=== PATIENT | female | born 1970 | race Caucasian/White ===

== ENCOUNTER 2019-04-06 15:15 | Emergency (ER) | payer BC, OTHER ==
--- NOTE | 2019-04-06 17:29 | CT ---
EXAMINATION TYPE: CT brain cayden evans DATE OF EXAM: 04/06/2019 COMPARISON: None HISTORY: Pain, head injury post fall CT DLP: 1384.8 mGycm Automated exposure control for dose reduction was used. TECHNIQUE: CT scan of the head and cervical spine are performed without contrast. FINDINGS: There is no acute intracranial hemorrhage, mass effect, or midline shift identified. The ventricles and sulci are within normal limits in size. The globes are intact and the visualized sin uses are clear. Cervical spine is visualized in its entirety from C1 through upper thoracic levels and demonstrates s atisfactory alignment without evidence of acute fracture or dislocation. Prevertebral soft tissue ap pears within normal limits. The C1-C2 articulation is unremarkable. IMPRESSION: 1. There is no acute fracture or dislocation evident in the cervical spine. 2. No acute intracranial hemorrhage, mass effect, or midline shift is seen.
--- NOTE | 2019-04-06 18:32 | XR ---
PROCEDURE: XR ankle complete LT - 3V DATE AND TIME: 04/06/2019 5:44 PM CLINICAL INDICATION: PHH; Pain TECHNIQUE: Department protocol COMPARISON: None FINDINGS: There is no fracture or malalignment. The soft tissues are unremarkable. IMPRESSION: NO ACUTE PROCESS.
--- NOTE | 2019-04-06 18:33 | XR ---
PROCEDURE: XR foot complete LT - 3V DATE AND TIME: 04/06/2019 5:44 PM CLINICAL INDICATION: PHH; Pain TECHNIQUE: Department protocol COMPARISON: None FINDINGS: There is no fracture or malalignment. The soft tissues are unremarkable. IMPRESSION: NO ACUTE PROCESS.
[2019-04-06 18:43] VITALS: BP 123/72; PULSE 81; RESP 18
== END 2019-04-06 19:04 ==
LOC: EC 15:15
DX: S01.91XA Laceration without foreign body of unspecified part of head, initial encounter (principal); S99.912A Unspecified injury of left ankle, initial encounter; V89.9XXA Person injured in unspecified vehicle accident, initial encounter
CPT/HCPCS: 73610; 73630; 72125; 70450; 99284; 29515; 12002; L4350